=== PATIENT | female | born 1935 | race Caucasian/White ===

== ENCOUNTER 2016-06-14 12:23 | Inpatient (IN) | payer MEDICARE, MEDICAID ==
[~2016-06-14] VITALS: Ht 170.2 cm; Wt 117.9 kg
[2016-06-14 13:21] LABS: HEMATOCRIT 38.4 % (36.0-48.0); HEMOGLOBIN 11.1 g/dL (12-16); MCH 24.5 pg (26.0-34.0); MCHC 28.9 g/dL (31.0-37.0); MCV 84.8 fL (80.0-100.0); RBC 4.53 10x6/uL (4.00-5.40); RDW 20.4 % (11.5-14.5); WBC 6.1 10x3/uL (4.8-10.8)
[2016-06-14 13:22] LABS: PLATELET COUNT 79 10x3/uL (130-400)
[2016-06-14 13:32] LABS: ALBUMIN 3.3 g/dL (3.4-5.0); ANION GAP 11.1 mmol/L (8-16); BILIRUBIN - TOTAL 0.71 mg/dL (0.2-1.3); CALCIUM 8.9 mg/dL (8.5-10.1); CARBON DIOXIDE 30.1 mmol/L (21.0-32.0); CREATININE - SERUM 1.5 mg/dL (0.6-1.3); POTASSIUM - SERUM 4.2 mmol/L (3.5-5.1); PROTEIN - SERUM 7.7 g/dL (6.4-8.2)
[2016-06-14 13:41] LABS: MAGNESIUM - SERUM 1.8 mg/dL (1.8-2.4); TROPONIN-I 0.021 ng/mL (0.000-0.060)
[2016-06-14 13:52] LABS: ANISOCYTOSIS OCC; HYPOCHROMASIA OCC; LYMPHOCYTES 33 % (15-50); MONOCYTES 27 % (2-11); NEUTROPHILS 39 % (40-80); PLATELET ESTIMATE DECREASED; ROULEAUX OCC
[2016-06-14 16:53] LABS: APPEARANCE CLEAR (CLEAR); BILIRUBIN NEGATIVE (NEGATIVE); COLOR YELLOW (YELLOW); GLUCOSE 100 mg/dL (NEGATIVE); KETONE NEGATIVE (NEGATIVE); LEUKOCYTE ESTERASE TRACE (NEGATIVE); NITRITE NEGATIVE (NEGATIVE); PROTEIN TRACE mg/dL (NEGATIVE); UROBILINOGEN NORMAL (NORMAL)
[2016-06-14 16:54] LABS: BACTERIA MANY /hpf (NONE SEEN)
--- NOTE | 2016-06-14 18:20 | NUR ---
RECIEVED TO ROOM 2202 VIA STRETCHER FROM ER ACCOMPANIED BY FAMILY PIV PATENT TO RIGHT HAND NS AT 75 ML HR. ALSO PIV TO LAC PATENT TO LEVOQUIN PT ALERT AND ORIENTED X 3 LUNGS WITH DIMINISED SOUNDS BILATERALLY. HU PATENT TO DARK YELLOW URINE
[2016-06-14 19:00] VITALS: BP 150/46
--- NOTE | 2016-06-14 19:25 | NUR ---
RECIEVED SHIFT REPORT. PT IS LYING IN BED. ALERT AND ORIENTED AND ABLE TO VERBALIZE NEEDS. IV'S X 2 PATENT AND FLUIDS AND ANTIBIOTIC RUNNING PER ORDER. O2 @ 3 PER NASAL CANNULA. PT IS AMBULATORY WITH ASSISTANCE. PT DENIES ANY PAIN AT THIS TIME. FAMILY IS AT THE BEDSIDE. NO NEEDS ARE VERBALIZED AT THIS TIME. WILL CONTINUE TO MONITOR. SIDE RAILS ARE UP X 2. BED IS IN LOWEST POSITION. CALL LIGHT IS WITHIN REACH.
--- NOTE | 2016-06-14 20:47 | NUR ---
ADMIT ASSESSMENT COMPLETED. ANTIBIOTIC HUNG PER ORDER. NO NEEDS ARE VOICED. WILL MONITOR. SIDE RAILS X 2. BED LOW. CALL LIGHT IN REACH. FAMILY AT BEDSIDE.
[2016-06-15 01:31] VITALS: BP 150/46; BMI 40.8
[2016-06-15 04:00] VITALS: BP 136/40
[2016-06-15] MEDS ORDERED: ULTRAM50 MG PO ×2 (06:04→15:51)
[2016-06-15] MEDS ORDERED: TYLENOL W/CODEI1 TAB PO (06:05)
[2016-06-15] MEDS ORDERED: XANAX0.5 MG PO ×2 (06:05→15:51)
--- NOTE | 2016-06-15 08:00 | NUR ---
PT ASSESSMENT COMPLETE AWAKE AND ALERT ORIENTED X 3 LUNGS WITH DIMINSHED SOUNDS. FAMILY AT BEDSIDE. SEE FLOWSHEET FOR ASSESSMENT EATING BREAKFAST AT THIS TIME
--- NOTE | 2016-06-15 08:30 | NUR ---
LYING IN BED,WITHOUT DISTRESS.FAMILY AT SIDE.CALL LIGHT IN REACH
[2016-06-15 08:39] VITALS: BP 135/55
[2016-06-15 12:26] VITALS: BP 123/40
--- NOTE | 2016-06-15 15:03 | NUR ---
Patient Name: ETHEL WEATHERS Admission Status: ER Accout number: [id number] Admission Date: 06-14-2016 : 1935 Admission Diagnosis: Attending: YOSELIN Current LOS: 1 Anticipated DC Date: 06-18-2016 Planned Disposition: Home Primary Insurance: [employer] ADV Discharge Planning Comments: CM MET WITH PATIENT REGARDING D/C NEEDS AND PLANS. PATIENT STATED HER SON (GUICHO) LIVES WITH HER AND HE OR HER DAUGHTER (HARI) WILL DRIVE HER HOME AT DISCHARGE. PATIENT STATED THERE ARE 4 STEPS WITH RAILS TO ENTER HER HOME AND NO STAIRS INSIDE. PATIENT STATED SHE HAS HELP FROM [facility] ON [facility] 5 DAYS A WEEK FOR 2 1/2 HRS A DAY. PATIENT HAS A WALKER, WHEELCHAIR, SHOWER CHAIR, AND BS COMMODE AT HOME. PATIENTS PCP IS DR. DUQUE AND PHARMACY IS [facility] [address]. PATIENT STATED [facility] TAKES GREAT CARE OF HER AND DOUBTS SHE WILL NEED HOME HEALTH. PCP DR[facility] [address]- [phone] HARI (DAUGHTER) [phone] GUICHO MANCIA (SON) [phone] Director Radiation Oncology: Mary Will Is the patient Alert and Oriented? Yes 0 * How many steps to enter\exit or inside your home? 4 W/RAILS 0 * PCP DR. DUQUE 0 * [facility] [address] 0 * Preadmission Environment Home with Family 0 * ADLs Independent 0 * Equipment Bedside Commode Shower Chair Walker Wheelchair 0 * List name and contact numbers for known caregivers / representatives who currently or will assist patient after discharge: HARI (DAUGHTER) [phone] GUICHO (SON) [phone] * Community resources currently utilized None 0 * Additional services required to return to the preadmission environment? Yes 0 * Can the patient safely return to the preadmission environment? Yes 0 * Has this patient been hospitalized within the prior 30 days at any hospital? No 0 Grand Total: 0
[2016-06-15 15:11] VITALS: Ht 170.2 cm; Wt 117.9 kg
[2016-06-15] MEDS ORDERED: GLUCOPHAGE1000 MG PO (15:52)
[2016-06-15] MEDS ORDERED: ACTOS45 MG PO (15:52)
[2016-06-15] MEDS ORDERED: LEVOTHYROXINE150 MCG PO (15:53)
[2016-06-15] MEDS ORDERED: TENORMIN50 MG PO (15:53)
[2016-06-15] MEDS ORDERED: MIRAPEX1 MG PO (15:54)
[2016-06-15] MEDS ORDERED: LIPITOR10 MG PO (15:54)
[2016-06-15 16:58] VITALS: BP 149/60
--- NOTE | 2016-06-15 18:30 | NUR ---
PT HAD CT OF ABDOMEN AND PELVIS TODAY WITH CONTRAST. HOME MEDS WERE RESUMED PER DR LUTZ GIVEN PER ORDER NEW ORDERS FOR IV ABT PER DR GAGNON STARTED AND TOLERATED WELL.
[2016-06-15 19:00] VITALS: BP 138/43
--- NOTE | 2016-06-15 19:20 | NUR ---
RECIEVED SHIFT REPORT. PT IS LYING IN BED. ALERT AND ORIENTED AND ABLE TO VERBALIZE NEEDS. IV IS PATENT AND SALINE LOC AT THIS TIME. O2 @ 3 PER NASAL CANNULA. PT IS AMBULATORY WITH ASSISTANCE. PT DENIES ANY PAIN AT THIS TIME. NO NEEDS ARE VERBALIZED AT THIS TIME. WILL CONTINUE TO MONITOR. FAMILY AT BEDSIDE. SIDE RAILS ARE UP X 2. BED IS IN LOWEST POSITION. CALL LIGHT IS WITHIN REACH.
--- NOTE | 2016-06-15 22:05 | NUR ---
SHIFT ASSESSMENT COMPLETED. NIGHT MEDS GIVEN WITH NO PROBLEMS. PT REFUSED SCHEDULED ULTRAM AT THIS TIME. PT ALSO REFUSED INSULIN FOR MWTB=453. PT SATS ON 02=97-99%. O2 TURNED DOWN TO 2L AT THIS TIME. NO FURTHER NEEDS. WILL MONITOR. SIDE RAILS X 2. BED LOW. CALL LIGHT IN REACH. FAMILY AT BEDSIDE.
--- NOTE | 2016-06-15 23:40 | NUR ---
PT REQUESTING TRAMADOL THAT WAS REFUSED EARLIER FOR PAIN 10/23. INSTRUCTED PT THAT THE NEXT TIME IT IS DUE WOULD BE DELAYED FOR THIS LATE ADMINISTRATION. VERBALIZED UNDERSTANDING. FAMILY AT BEDSIDE. SIDE RAILS X 2. BED LOW. CALL LIGHT IN REACH.
[2016-06-16 04:00] VITALS: BP 141/40
[2016-06-16 05:26] LABS: BASOPHILS 0.4 % (0.0-2.0); EOSINOPHILS 0 % (0-7); IMMATURE GRANULOCYTES 1.7 % (0-5); LYMPHOCYTES 37.3 % (15-50); MCH 24.1 pg (26.0-34.0); MCHC 28.1 g/dL (31.0-37.0); MCV 85.9 fL (80.0-100.0); MEAN PLATELET VOLUME 10.7 fL (7.4-10.4); MONOCYTES 34.4 % (2-11); NEUTROPHILS 26.2 % (40-80); RDW 20.1 % (11.5-14.5)
[2016-06-16 05:42] LABS: ALBUMIN 2.6 g/dL (3.4-5.0); ANION GAP 7.5 mmol/L (8-16); BILIRUBIN - TOTAL 0.5 mg/dL (0.2-1.3); CARBON DIOXIDE 30.7 mmol/L (21.0-32.0); MAGNESIUM - SERUM 1.7 mg/dL (1.8-2.4); PHOSPHOROUS 3.3 mg/dL (2.5-4.9); POTASSIUM - SERUM 4.2 mmol/L (3.5-5.1); PROTEIN - SERUM 6.1 g/dL (6.4-8.2)
[2016-06-16 06:11] LABS: HEMOGLOBIN 8.7 g/dL (12-16); PLATELET COUNT 63 10x3/uL (130-400); RBC 3.61 10x6/uL (4.00-5.40); WBC 2.4 10x3/uL (4.8-10.8)
--- NOTE | 2016-06-16 07:15 | NUR ---
REPORT RECEIVED FROM PATIENT CARE DIRECTOR NURSE. CALL LIGHT IN REACH.
[2016-06-16 07:57] VITALS: BP 143/35
--- NOTE | 2016-06-16 09:00 | NUR ---
ASSESSMENT COMPLETED. DOES NOT WANT SCDs ON AT THIS TIME. DAUGHTER AT BEDSIDE. CALL LIGHT IN REACH. WILL CONTINUE WITH PLAN OF CARE.
--- NOTE | 2016-06-16 09:21 | NUR ---
PASSWORD OBTAINED FROM DAUGHTER AND PLACED IN CHART.
[2016-06-16 09:35] LABS: % SATURATION 4 % (15-55); IRON 15 ug/dl (35-150); TOTAL IRON BIND CAPACITY 361 ug/dl (260-445); UNSAT IRON BIND CAPACITY 346 ug/dl (150-375)
--- NOTE | 2016-06-16 09:50 | NUR ---
XANAX AND TRAMADOL PO WITH AM MEDS ADMNISTERED PER STUDENT NURSE AND INSTRUCTOR.
--- NOTE | 2016-06-16 11:55 | NUR ---
JIN HAILE PLACED IN BR AND EXPLAINED TO PATIENT AND DAUGHTER WHY.
[2016-06-16 11:57] VITALS: BP 144/46
--- NOTE | 2016-06-16 12:17 | NUR ---
SCHEDULED INSULIN ADMINISTERED PER SLIDING SCALE. PT ALERT AND ORIENTED, SITTING UP IN BED AT THIS TIME. FAMILY AT BEDSIDE. DENIES NEEDS AT PRESENT TIME. RESPIRATIONS EVEN AND UNLABORED. CALL LIGHT IN REACH, WILL CONTINUE WITH PLAN OF CARE.
--- NOTE | 2016-06-16 12:18 | NUR ---
FSBS 254. HUMALOG 6 UNITS SUBQ TO LEFT ARM. CALL LIGHT IN REACH.
--- NOTE | 2016-06-16 14:03 | NUR ---
LYING IN BED WITH EYES CLOSED. RESP EVEN AND UNLABORED. DAUGHTER AND OTHER VISITOR SITTING AT BEDSIDE.
--- NOTE | 2016-06-16 16:05 | NUR ---
SPUTUM CX COLLECTED AND SENT TO LAB.
[2016-06-16 16:23] VITALS: BP 136/46
--- NOTE | 2016-06-16 17:25 | NUR ---
ROCEPHIN IVPN. TRAMADOL AND PROTONIX PO. FSBS 160 SO HUMALOG 2 UNITS SUBQ TO LEFT ARM. DAUGHTER IN ROOM. CALL LIGHT IN REACH.
--- NOTE | 2016-06-16 18:15 | NUR ---
NO CHANGES IN INITIAL ASSESSMENT. SCDs TO BLE. CALL LIGHT IN REACH. DAUGHTER IN ROOM. CALL LIGHT IN REACH.
--- NOTE | 2016-06-16 20:10 | NUR ---
AWAKE,ALERT,NO COMPLAINTS VOICED. SL TO RIGHT HAND INTACT WITHOUT REDNESS OR EDEMA NOTED.UP WIHT ASSISTANCE TO BATHROOM. CL IN REACH. FAMILY AT BEDSIDE.
[2016-06-16 21:00] VITALS: BP 131/41
--- NOTE | 2016-06-17 01:58 | NUR ---
EYES CLOSED RESP EVEN AND UNLABORED. CL IN REACH. FAMILY REMAINS AT BEDSIDE.
[2016-06-17 04:00] VITALS: BP 141/46
--- NOTE | 2016-06-17 04:00 | NUR ---
PATIENT SLEEPING WITH NO DISTRESS NOTED. O2 @ 2L VIA NC. IV TO RIGHT HAND SL WITH NO REDNESS OR SWELLING. TELEMETRY ON. SCD'S ON. SRX2. BED LOW. CALL LIGHT WITHIN REACH.
[2016-06-17 05:50] LABS: BASOPHILS 0.9 % (0.0-2.0); EOSINOPHILS 0.5 % (0-7); HEMOGLOBIN 8.7 g/dL (12-16); IMMATURE GRANULOCYTES 2.8 % (0-5); LYMPHOCYTES 32.9 % (15-50); MCH 24.6 pg (26.0-34.0); MCHC 28.1 g/dL (31.0-37.0); MCV 87.8 fL (80.0-100.0); MONOCYTES 31.9 % (2-11); PLATELET COUNT 66 10x3/uL (130-400); RBC 3.53 10x6/uL (4.00-5.40); WBC 2.2 10x3/uL (4.8-10.8)
[2016-06-17 06:18] LABS: ALBUMIN 2.6 g/dL (3.4-5.0); ANION GAP 9.5 mmol/L (8-16); BILIRUBIN - TOTAL 0.4 mg/dL (0.2-1.3); CALCIUM 7.9 mg/dL (8.5-10.1); CARBON DIOXIDE 31.1 mmol/L (21.0-32.0); CREATININE - SERUM 0.8 mg/dL (0.6-1.3); MAGNESIUM - SERUM 1.5 mg/dL (1.8-2.4); POTASSIUM - SERUM 4.6 mmol/L (3.5-5.1); PROTEIN - SERUM 5.7 g/dL (6.4-8.2)
--- NOTE | 2016-06-17 06:24 | NUR ---
NO CHANGE IN ASSESSMENT. CL IN REACH.
--- NOTE | 2016-06-17 07:00 | NUR ---
REPORT RECEIVED FROM CONTRACTS ANALYST NURSE. CALL LIGHT IN REACH.
[2016-06-17 08:08] VITALS: BP 139/45
--- NOTE | 2016-06-17 09:21 | NUR ---
ASSESSMENT COMPLETED. AM MEDS ADMINISTERED. ASSISTED BACK TO BED FROM BR. HELD ATENOLOL FOR DBP OF 45. WILL GIVE LATER IF BP COMES UP. CORN MILLER IN ROOM TO DO BATH. DAUGHTER AT BEDSIDE. CALL LIGHT IN REACH. WILL CONTINUE WITH PLAN OF CARE.
[2016-06-17 10:18] LABS: FOLATE (FOLIC ACID) - SERUM >20.0 ng/mL (>3.0)
--- NOTE | 2016-06-17 10:34 | NUR ---
NUTRITION MONITORING & EVAL CHART REVIEWED. 75% INTAKE DIABETIC DIET. WILL CONTINUE TO PROVIDE DIET, HONOR FOOD PREFERENCES. RD FOLLOWING
[2016-06-17 11:18] VITALS: BP 152/46
--- NOTE | 2016-06-17 11:25 | NUR ---
FSBS 232. HUMALOG 4 UNITS SUBQ TO LEFT ARM. BETI PO. CALL LIGHT IN REACH.
--- NOTE | 2016-06-17 12:40 | NUR ---
EATING LUNCH AT THIS TIME. DAUGHTER IN ROOM. CALL LIGHT IN REACH.
--- NOTE | 2016-06-17 14:30 | NUR ---
RESTING WITH EYES CLOSED. RESP EVEN AND UNLABORED. DAUGHTER IN ROOM. CALL LIGHT IN REACH.
[2016-06-17 15:15] VITALS: BP 155/68
--- NOTE | 2016-06-17 16:12 | NUR ---
EVENING MEDS ADMINISTERED. 6 UNITS HUMALOG INSULIN SUBQ TO LEFT ARM. HU CATH DC'D WITH TIP INTACT. ASSISTED TO SHOWER.
--- NOTE | 2016-06-17 16:37 | NUR ---
WANTS TO WAIT UNTIL AFTER SHOWER TO GET IV RESITED.
--- NOTE | 2016-06-17 17:41 | NUR ---
PATIENT IN THE BATHROOM FAMILY IN ROOM. TOLD THEM TO LET US KNOW IF WE NEED ANYTHING.
--- NOTE | 2016-06-17 18:30 | NUR ---
IV ATTEMPT X1 PER MYSELF AND X1 PER IZZY CASEY. RESITED TO LEFT UPPERARM WITH 22 GA X1 STICK PER IZZY SALINAS. TOMASZ INITIATED. NEW IV TUBING. FAMILY IN ROOM. NO CHANGES IN INITIAL ASSESSMENT. CALL LIGHT IN REACH. WILL CONTINUE WITH PLAN OF CARE.
--- NOTE | 2016-06-17 18:59 | NUR ---
LARGE SCDs APPLIED TO BLE.
[2016-06-17 20:00] VITALS: BP 162/70
[2016-06-18] VITALS: BP 136/58
[2016-06-18 04:00] VITALS: BP 142/64
[2016-06-18 05:54] LABS: BASOPHILS 0.5 % (0.0-2.0); EOSINOPHILS 0 % (0-7); HEMATOCRIT 30.2 % (36.0-48.0); HEMOGLOBIN 8.4 g/dL (12-16); IMMATURE GRANULOCYTES 4.5 % (0-5); LYMPHOCYTES 32.3 % (15-50); MCH 23.9 pg (26.0-34.0); MCHC 27.8 g/dL (31.0-37.0); MEAN PLATELET VOLUME 11.6 fL (7.4-10.4); MONOCYTES 28.6 % (2-11); NEUTROPHILS 34.1 % (40-80); PLATELET COUNT 66 10x3/uL (130-400); RBC 3.51 10x6/uL (4.00-5.40); RDW 19.5 % (11.5-14.5); WBC 2.2 10x3/uL (4.8-10.8)
[2016-06-18 06:36] LABS: ALBUMIN 2.5 g/dL (3.4-5.0); ANION GAP 8.1 mmol/L (8-16); BILIRUBIN - TOTAL 0.4 mg/dL (0.2-1.3); CALCIUM 8.2 mg/dL (8.5-10.1); CREATININE - SERUM 0.9 mg/dL (0.6-1.3); POTASSIUM - SERUM 4.1 mmol/L (3.5-5.1)
--- NOTE | 2016-06-18 07:00 | NUR ---
REPORT RECEIVED FROM ADMINISTRATIVE FELLOW NURSE. CALL LIGHT IN REACH.
[2016-06-18 07:55] VITALS: BP 124/78
--- NOTE | 2016-06-18 09:48 | NUR ---
ASSESSMENT COMPLETED. AM MEDS ADMINISTERED. SCDs OFF PER PATIENT REQUEST. DAUGHTER AT BEDSIDE. CALL LIGHT IN REACH. WILL CONTINUE WITH PLAN OF CARE.
[2016-06-18] MEDS ORDERED: SINGULAIR10 MG PO (10:35)
[2016-06-18] MEDS ORDERED: FLUTICASONE PRO16 GM NASAL (10:35)
[2016-06-18] MEDS ORDERED: MUCINEX DM ER1 EAC1 PO (10:35)
[2016-06-18] MEDS ORDERED: TESSALON PERLE100 MG PO (10:35)
[2016-06-18] MEDS ORDERED: PULMICORT0.5 MG/21 UPD (10:35)
[2016-06-18] MEDS ORDERED: SALINE NASAL SP45 ML NASAL (10:36)
[2016-06-18] MEDS ORDERED: PROTONIX40 MG PO (10:36)
[2016-06-18] MEDS ORDERED: FLORAJEN3 CAPS460 MG PO (10:36)
[2016-06-18] MEDS ORDERED: NICODERM C1 PATCH .2 TRANSDERM (10:38)
[2016-06-18] MEDS ORDERED: LEVAQUIN500 MG PO (10:39)
[2016-06-18] MEDS ORDERED: XOPENEX 0.0.63 MG/3 UPD (10:39)
[2016-06-18] MEDS ORDERED: ATROVENT 0.02%2.5 ML UPD ×2 (10:39→10:44)
[2016-06-18] MEDS ORDERED: PREDNISONE10 MG PO (10:40)
[2016-06-18] MEDS ORDERED: PROVENTIL/2.5 MG/3 M INH (10:43)
--- NOTE | 2016-06-18 10:50 | NUR ---
NO NEEDS VOICED AT THIS TIME. CALL LIGHT IN REACH.
--- NOTE | 2016-06-18 10:55 | NUR ---
CM REASSESSMENT NOTE: PATIENT IS DISCHARGING HOME TODAY-FAMILY DRIVING HER. PATIENT HAS A NEBULIZER ORDERED THROUGH [facility] AND WILL BE DELIVERED HERE BEFORE DISCHARGE. PATIENT SIGNED THE SANTI FORM WITH [facility].
[2016-06-18 11:29] VITALS: BP 141/81
--- NOTE | 2016-06-18 12:00 | NUR ---
QUIET IN ROOM AT PRESENT DENIES ANY NEEDS FAMILY AT BEDSIDE.
--- NOTE | 2016-06-18 12:30 | NUR ---
FSBS 172. HUMALOG 2 UNITS SUBQ TO LEFT ARM. SON IN ROOM. CALL LIGHT IN REACH.
--- NOTE | 2016-06-18 12:47 | NUR ---
STOOL SAMPLE COLLECTED AND SENT TO LAB.
--- NOTE | 2016-06-18 13:20 | NUR ---
WENT IN TO EXPLAIN DC PAPERWORK AND DAUGHTER REQUESTED FOR PATIENT'S O2 TO GET CHECKED. IT WAS 86% AT REST. NOTIFIED SATURATOR AND DC TECHNICAL LEAD SO HOME O2 COULD GET ORDERED.
--- NOTE | 2016-06-18 14:46 | NUR ---
DC INSTRUCTIONS EXPLAINED TO PATIENT AND DAUGHTER. VERBALIZED UDNERSTANDING. WAITING ON HOME O2 TANK.
--- NOTE | 2016-06-18 16:10 | NUR ---
HOME O2 DELIVERED TO PATIENT AND EXPLAINED THOROUGHLY.
--- NOTE | 2016-06-18 16:40 | NUR ---
DC'D TO VEHICLE VIA WC WITH DAUGHTER.
--- NOTE | 2016-07-09 08:46 | EC ---
PATIENT:ETHEL WEATHERS DATE OF SERVICE: 06/14/16 SEX: F MEDICAL RECORD: [id number] DATE OF : [birth year] LOCATION:[facility] AGE OF PATIENT: 81 ADMISSION DATE: 06/14/16 REFERRING PHYSICIAN: INTERPRETING PHYSICIAN: DARIEL PAZ MD ECHOCARDIOGRAM REPORT ECHO CHARGES 4 ECHO COMPLETE CLINICAL DIAGNOSIS: CHF ECHOCARDIOGRAPHIC MEASUREMENTS (adult normal given) AC root (d.<3.7cm) 2.9 LV Septum d (<1.2 cm> 1.8 Valve Excursion 1.8 LV Septum (systole) 2.1 Left Atria (s.<4.0cm> 5.2 LVPW d(<1.2cm) 1.7 RV (d.<2.3cm) 3.2 LVPW (sytole) 2.3 LV diastole(<5.6CM) 5.9 MV E-F(>70mm/sec) LV systole 3.8 LVOT Diameter 2.1 MV exc.(>10mm) Est.ejection fraction (50-75%) Pericardial Effusion N DOPPLER: LVIT A 84.0 E 112 LA RVSP 52.0 LVOT 125 AOP1/2T Asc. Ao 213 RVOT 86.0 RA PA 140 AV Gradient Peak 18.1 AV Mean 8.5 AV Area 2.2 MV Gradient Peak 4.3 MV Mean 1.8 MV Area COMMENTS: Cooperative Education Director: Ena ROJAS Strategic Sourcing Consultant:Evangelist Kurtz TAPE# PACS DATE OF SERVICE: 06/16/2016 Echocardiogram FINDINGS: 1. Left ventricular chamber size is within normal limits. Left ventricular systolic function is normal. Overall ejection fraction estimated at 60%. 2. Left atrium is enlarged at 5.2 cm. Right atrium and right ventricular chamber sizes are as well mildly dilated. 3. Valvular structures have normal structure and motion. ECHOCARDIOGRAM REPORT [id number] ETHEL WEATHERS 4. Doppler interrogation reveals mild mitral regurgitation, mild tricuspid regurgitation, no other valvular insufficiency or stenosis; however, pulmonary systolic pressure is elevated estimated at 52 mmHg. 5. No evidence of pericardial effusion or left ventricular thrombus. TRANSINT:[id number] Voice Confirmation ID: [id number] DOCUMENT ID: [id number] 06/28/2016 Edited to correct date of service, dm. DARIEL PAZ MD at 0846 CC: [id number] DICTATION DATE: 06/17/16 1226 TIE UP WORKER: 06/17/16 1343 DIS IN 06/18/16 [id number] [place] [address]
== END 2016-06-18 16:40 | disposition home or self-care (01) | DRG 189 ==
LOC: D.ER 12:23 → D.MS 17:09
PROVIDERS: Emergency Medicine; Internal Medicine Pulmonary Disease; ADMIT Family Medicine
DX: J96.90 Respiratory failure, unspecified, unspecified whether with hypoxia or hypercapnia (principal); J15.6 Pneumonia due to other Gram-negative bacteria; J13 Pneumonia due to Streptococcus pneumoniae; J44.0 Chronic obstructive pulmonary disease with (acute) lower respiratory infection; J90 Pleural effusion, not elsewhere classified; D69.3 Immune thrombocytopenic purpura; D61.818 Other pancytopenia; N39.0 Urinary tract infection, site not specified; F17.203 Nicotine dependence unspecified, with withdrawal; E87.1 Hypo-osmolality and hyponatremia; Z68.41 Body mass index [BMI] 40.0-44.9, adult; J44.1 Chronic obstructive pulmonary disease with (acute) exacerbation; E11.40 Type 2 diabetes mellitus with diabetic neuropathy, unspecified; E11.21 Type 2 diabetes mellitus with diabetic nephropathy; K74.60 Unspecified cirrhosis of liver; K21.9 Gastro-esophageal reflux disease without esophagitis; G47.33 Obstructive sleep apnea (adult) (pediatric); G25.81 Restless legs syndrome; E03.9 Hypothyroidism, unspecified

== ENCOUNTER → 2016-06-19 16:47 | Outpatient (CLI) | payer MEDICARE, MEDICAID ==
[2016-06-15 15:11] VITALS: BMI 40.7
[~2016-06-19 16:47] MED LIST: ACTOS45 MG PO; ATROVENT 0.02%2.5 ML UPD; FLORAJEN3 CAPS460 MG PO; FLUTICASONE PRO16 GM NASAL; GLUCOPHAGE1000 MG PO; LEVAQUIN500 MG PO; LEVOTHYROXINE150 MCG PO; LIPITOR10 MG PO; MIRAPEX1 MG PO; MUCINEX DM ER1 EAC1 PO; NICODERM C1 PATCH .2 TRANSDERM; PREDNISONE10 MG PO; PROTONIX40 MG PO; PROVENTIL/2.5 MG/3 M INH; PULMICORT0.5 MG/21 UPD; SALINE NASAL SP45 ML NASAL; SINGULAIR10 MG PO; TENORMIN50 MG PO; TESSALON PERLE100 MG PO; TYLENOL W/CODEI1 TAB PO; ULTRAM50 MG PO; XANAX0.5 MG PO; XOPENEX 0.0.63 MG/3 UPD
== END | disposition home or self-care (01) ==
LOC: D.LABREF 16:47
PROVIDERS: Family Medicine
DX: E11.9 Type 2 diabetes mellitus without complications (principal)

== ENCOUNTER 2016-07-22 18:44 | Emergency (ER) | payer MEDICARE, MEDICAID ==
[2016-06-15 15:11] VITALS: BMI 40.7
== END 2016-07-22 22:11 | disposition home or self-care (01) ==
LOC: D.ER 18:44
DX: L03.114 Cellulitis of left upper limb (principal); E11.9 Type 2 diabetes mellitus without complications; E78.5 Hyperlipidemia, unspecified; I95.9 Hypotension, unspecified; E03.9 Hypothyroidism, unspecified; F17.200 Nicotine dependence, unspecified, uncomplicated

== ENCOUNTER 2018-04-21 15:27 | Emergency (ER) | payer MEDICARE, MEDICAID ==
[~2018-04-21] VITALS: Ht 170.2 cm; Wt 117.3 kg
[2018-04-21 15:38] VITALS: Ht 170.2 cm; Wt 117.3 kg
[2018-04-21 17:29] LABS: APPEARANCE CLEAR (CLEAR); BILIRUBIN NEGATIVE (NEGATIVE); COLOR YELLOW (YELLOW); GLUCOSE NEGATIVE (NEGATIVE); KETONE NEGATIVE (NEGATIVE); NITRITE NEGATIVE (NEGATIVE); PROTEIN NEGATIVE (NEGATIVE); UROBILINOGEN NORMAL (NORMAL)
[2018-04-21] MEDS ORDERED: TORADOL10 MG PO (19:09)
[2018-04-21 19:27] VITALS: BP 132/78
== END 2018-04-21 19:27 | disposition home or self-care (01) ==
LOC: D.ER 15:27
PROVIDERS: Emergency Medicine
DX: M54.6 Pain in thoracic spine (principal); E11.9 Type 2 diabetes mellitus without complications; K74.60 Unspecified cirrhosis of liver; I10 Essential (primary) hypertension

== ENCOUNTER 2018-05-09 13:33 | Emergency (ER) | payer MEDICARE, MEDICAID ==
[~2018-05-09] VITALS: Ht 170.2 cm; Wt 117.3 kg
[~2018-05-09 13:33] MED LIST changes: +TORADOL10 MG PO
[2018-05-09 14:00] VITALS: Ht 170.2 cm; Wt 117.3 kg
[2018-05-09 15:06] LABS: BASOPHILS 0.3 % (0-2); EOSINOPHILS 0.6 % (0-7); HEMATOCRIT 47.9 % (36.0-48.0); HEMOGLOBIN 15.2 g/dL (12-16); IMMATURE GRANULOCYTES 1.2 % (0-5); LYMPHOCYTES 38.6 % (15-50); MCH 28.3 pg (26.0-34.0); MCHC 31.7 g/dL (31.0-37.0); MCV 89.2 fL (80.0-100.0); MEAN PLATELET VOLUME 10.6 fL (7.4-10.4); MONOCYTES 22.3 % (2-11); RBC 5.37 10x6/uL (4.00-5.40); RDW 15.3 % (11.5-14.5); WBC 3.3 10x3/uL (4.8-10.8)
[2018-05-09 15:13] LABS: PLATELET COUNT 80 10x3/uL (130-400)
[2018-05-09 15:20] LABS: ALBUMIN 3.5 g/dL (3.4-5.0); ALKALINE PHOSPHATASE 128 U/L (46-116); ALT (SGPT) 15 U/L (10-68); BILIRUBIN - TOTAL 1.29 mg/dL (0.2-1.3); CALC OSMOLALITY 280 mosm/kg (275-300); CALCIUM 9.4 mg/dL (8.5-10.1); CARBON DIOXIDE 33.4 mmol/L (21.0-32.0); CHLORIDE - SERUM 100 mmol/L (98-107); CREATININE - SERUM 0.9 mg/dL (0.6-1.3); POTASSIUM - SERUM 4.1 mmol/L (3.5-5.1); PROTEIN - SERUM 8.5 g/dL (6.4-8.2); SODIUM 140 mmol/L (136-145); UREA NITROGEN 13 mg/dL (7-18); eGFR NON AFRICAN AMERICAN 64 mL/min (90-120)
[2018-05-09 15:21] LABS: GLUCOSE 131 mg/dL (74-106)
[2018-05-09 15:27] LABS: LIPASE 152 U/L (73-393); PRO BNP 679 pg/mL (0-450); TROPONIN-I < 0.017 ng/mL (0.000-0.060)
[2018-05-09 17:28] VITALS: BP 147/84
== END 2018-05-09 17:20 | disposition home or self-care (01) ==
LOC: D.ER 13:33
PROVIDERS: Family Medicine
DX: D72.821 Monocytosis (symptomatic) (principal); M54.6 Pain in thoracic spine; D69.6 Thrombocytopenia, unspecified; E11.9 Type 2 diabetes mellitus without complications; I10 Essential (primary) hypertension